=== PATIENT | female | born 1995 | race African-American/Black ===

== ENCOUNTER 2016-11-14 11:31 | Emergency (ER) | payer SELFPAY ==
[~2016-11-14] VITALS: Ht 160 cm; Wt 121.6 kg
[~2016-11-14 11:31] MED LIST: AMOXICILLIN875 MG PO; BACTRIM DS 8001 TAB PO; FLEXERIL 1010 MG/TAB PO; SUDAFED30 MG PO; VOLTAREN 75 DR75 MG PO
[2016-11-14 11:36] VITALS: BP 164/80; TEMP 98.1
[2016-11-14] MEDS ORDERED: POLYMYXIN B/TRIMETH OS (12:01)
[2016-11-14] MEDS ORDERED: POLYMYXIN B/TRIMETH OT (12:05)
[2016-11-14 12:15] VITALS: PULSE 95
== END 2016-11-14 12:20 | disposition home or self-care (01) ==
LOC: COL.ER 11:31
DX: H60.502 Unspecified acute noninfective otitis externa, left ear (principal); F17.210 Nicotine dependence, cigarettes, uncomplicated

== ENCOUNTER 2016-11-25 13:01 | Emergency (ER) | payer SELFPAY ==
[~2016-11-25] VITALS: Ht 160 cm; Wt 113.6 kg
[~2016-11-25 13:01] MED LIST changes: +POLYMYXIN B/TRIMETH OS; +POLYMYXIN B/TRIMETH OT
[2016-11-25 13:02] VITALS: TEMP 99.1
[2016-11-25 13:50] LABS: BASO % 0.4 % (0.0-2.0); EOS # 0.1 (0.0-0.7); EOS % 1.5 % (0-4.0); GRAN % 49.8 % (42.2-75.2); HEMATOCRIT 41.8 % (37.0-47.0); HEMOGLOBIN 14.3 g/dl (12.5-16.0); LYMPH # 3.1 (1.2-3.4); LYMPH % 38.6 % (20.0-51.0); MEAN CELL VOLUME 86 fl (80.0-100.0); MEAN CORPUSCULAR HEMOGLOBIN 30 pg (27.0-31.0); MEAN CORPUSCULAR HGB CONC 34 g/dl (33.0-37.0); MEAN PLATELET VOLUME 10.1 fl (7.4-10.4); MONO # 0.7 (0.1-0.6); MONO % 9.4 % (1.7-9.3); PLATELET COUNT 229 K/mm3 (130-400); RED BLOOD COUNT 4.84 M/mm3 (4.10-5.30); REDCELL DISTRIBUTION WIDTH-CV 12.8 % (11.5-14.5); WHITE BLOOD COUNT 7.9 K/mm3 (4.8-10.8)
[2016-11-25 14:01] LABS: ADJUSTED CALCIUM 9.2 mg/dL (8.4-10.2); ALANINE AMINOTRANSFERASE 26 U/L (9-52); ALBUMIN 3.9 gm/dL (3.5-5.0); ALKALINE PHOSPHATASE 44 U/L (50-136); ANION GAP 11 mmol/L (7-16); BILIRUBIN,TOTAL 0.8 mg/dL (0.0-1.0); BLOOD UREA NITROGEN 11 mg/dL (7-17); CALCIUM 9.1 mg/dL (8.4-10.2); CARBON DIOXIDE 23 mmol/L (22-30); CHLORIDE 105 mmol/L (98-107); CREATININE, serum 0.77 mg/dL (0.52-1.25); GLUCOSE 92 mg/dL (74-106); SODIUM 138 mmol/L (137-145); TOTAL PROTEIN 6.8 gm/dL (6.4-8.2)
[2016-11-25 14:03] LABS: C-REACTIVE PROTEIN < 0.5 mg/dL (0.0-0.9)
[2016-11-25] MEDS ORDERED: PREDNISONE20 MG PO (15:03)
[2016-11-25] MEDS ORDERED: ZITHROMAX 250M250 MG PO (15:03)
[2016-11-25] MEDS ORDERED: ZOFRAN 4MG T4 MG/TAB PO (15:03)
[2016-11-25] MEDS ORDERED: PROVENTIL0.09 MG/A1 IH (15:03)
[2016-11-25 15:04] VITALS: BP 116/59; PULSE 74
== END 2016-11-25 15:16 | disposition home or self-care (01) ==
LOC: COL.ER 13:01
PROVIDERS: Emergency Medicine
DX: J40 Bronchitis, not specified as acute or chronic (principal); J45.909 Unspecified asthma, uncomplicated; F17.210 Nicotine dependence, cigarettes, uncomplicated
CPT/HCPCS: J2405; J7512

== ENCOUNTER 2017-03-18 07:16 | Emergency (ER) | payer SELFPAY ==
[~2017-03-18] VITALS: Ht 157.5 cm; Wt 122.0 kg
[~2017-03-18 07:16] MED LIST changes: +PREDNISONE20 MG PO; +PROVENTIL0.09 MG/A1 IH; +ZITHROMAX 250M250 MG PO; +ZOFRAN 4MG T4 MG/TAB PO
[2017-03-18 07:20] VITALS: BP 137/88; PULSE 84; TEMP 97.1
[2017-03-18] MEDS ORDERED: FLEXERIL 1010 MG/TAB PO (07:23)
== END 2017-03-18 08:42 | disposition home or self-care (01) ==
LOC: COL.ER 07:16
DX: J06.9 Acute upper respiratory infection, unspecified (principal); J45.909 Unspecified asthma, uncomplicated; F17.210 Nicotine dependence, cigarettes, uncomplicated

== ENCOUNTER 2017-06-18 09:19 | Emergency (ER) | payer SELFPAY ==
[~2017-06-18] VITALS: Ht 160 cm; Wt 114.5 kg
[2017-06-18 09:23] VITALS: TEMP 98.6
[2017-06-18 12:02] LABS: BASO % 0.3 % (0.0-2.0); EOS # 0.1 (0.0-0.7); EOS % 0.9 % (0-4.0); GRAN # 2.2 (1.4-6.5); GRAN % 32.6 % (42.2-75.2); HEMATOCRIT 42.9 % (37.0-47.0); HEMOGLOBIN 14.4 g/dl (12.5-16.0); LYMPH # 3.9 (1.2-3.4); LYMPH % 56.8 % (20.0-51.0); MEAN CELL VOLUME 87 fl (80.0-100.0); MEAN CORPUSCULAR HEMOGLOBIN 29 pg (27.0-31.0); MEAN CORPUSCULAR HGB CONC 34 g/dl (33.0-37.0); MEAN PLATELET VOLUME 10.2 fl (7.4-10.4); MONO # 0.6 (0.1-0.6); MONO % 9.3 % (1.7-9.3); PLATELET COUNT 256 K/mm3 (130-400); RED BLOOD COUNT 4.91 M/mm3 (4.10-5.30); WHITE BLOOD COUNT 6.9 K/mm3 (4.8-10.8)
[2017-06-18 13:09] VITALS: BP 125/74; PULSE 62
== END 2017-06-18 13:09 | disposition home or self-care (01) ==
LOC: COL.ER 09:19
PROVIDERS: Nurse Practitioner
DX: R07.9 Chest pain, unspecified (principal); F17.210 Nicotine dependence, cigarettes, uncomplicated